=== PATIENT | male | born 2000 | race Caucasian/White ===

== ENCOUNTER 2019-01-11 11:54 | Emergency (ER) | payer SELFPAY | END 2019-01-11 13:16 | disposition home or self-care (01) | LOC: FTE 13:16 | DX: H10.9 Unspecified conjunctivitis (principal) | CPT/HCPCS: 99283 ==

== ENCOUNTER 2019-01-20 15:41 | Emergency (ER) | payer SELFPAY ==
[2019-01-20] MEDS: DIPHTH/TET/ACEL PERTUSS (ADULT) 0.5 ML VIAL IM* (17:50)
[2019-01-20] MEDS: BACITRACIN 0.9 GM OINT TOP (17:50)
== END 2019-01-20 19:33 | disposition home or self-care (01) ==
LOC: FTE 15:41
DX: T21.12XA Burn of first degree of abdominal wall, initial encounter (principal); X10.2XXA Contact with fats and cooking oils, initial encounter; Y92.9 Unspecified place or not applicable; Z23 Encounter for immunization
CPT/HCPCS: 16020; 90471; 90715; 99283-25